=== PATIENT | female | born 1935 | race Caucasian/White ===

== ENCOUNTER → 2020-08-26 | Outpatient (CLI) | payer MEDICARE ==
[~2020-08-26] MED LIST: ASPIRIN EC325 MG PO; CALCIUM; CALCIUM CARBON600 MG PO; ENDOCET 5-3251 EACH PO; GUMMI BEAR MUL1 EACH PO; TYLENOL EXTRA500 MG PO; VITAMIN D 40400 UNIT PO
[2020-08-26 11:55] LABS: RED BLOOD COUNT 4.9 M/UL (4.00-5.10); WHITE BLOOD COUNT 6.8 K/UL (4.5-11.0)
[2020-08-26 12:15] LABS: BUN/CREATININE RATIO 27 (0-10)
== END ==
LOC: OPSV2 10:25 → EDSTATUS 10:30 → OPSV2 10:30
PROVIDERS: Orthopaedic Surgery
DX: Z01.818 Encounter for other preprocedural examination (principal); M16.12 Unilateral primary osteoarthritis, left hip; I44.0 Atrioventricular block, first degree; R94.31 Abnormal electrocardiogram [ECG] [EKG]
CPT/HCPCS: 36415; 80048; 85027; 87081; 93005

== ENCOUNTER → 2020-09-07 | Outpatient (CLI) | payer MEDICARE ==
[2020-09-07 17:50] LABS: BUN/CREATININE RATIO 26 (0-10)
== END ==
LOC: LAB 13:37
PROVIDERS: Orthopaedic Surgery
DX: Z01.812 Encounter for preprocedural laboratory examination (principal)
CPT/HCPCS: 36415; 80048; 86850; 86900; 86901

== ENCOUNTER 2020-09-08 06:59 | Inpatient (IN) | payer MEDICARE ==
[~2020-09-08] VITALS: Ht 157.5 cm; Wt 79.4 kg
[~2020-09-08 06:59] MED LIST changes: -ASPIRIN EC325 MG PO; -CALCIUM CARBON600 MG PO; -ENDOCET 5-3251 EACH PO; -GUMMI BEAR MUL1 EACH PO; -TYLENOL EXTRA500 MG PO; -VITAMIN D 40400 UNIT PO
[2020-09-08] MEDS ORDERED: ENDOCET 5-3251 EACH PO (12:09)
[2020-09-08] MEDS ORDERED: ASPIRIN EC325 MG PO (12:09)
[2020-09-09 03:06] LABS: HEMOGLOBIN 12.3 gm/dl (12.3-15.3); RED BLOOD COUNT 4.35 M/UL (4.00-5.10); WHITE BLOOD COUNT 10.5 K/UL (4.5-11.0)
[2020-09-09 03:46] LABS: BUN/CREATININE RATIO 18 (0-10)
[2020-09-09] MEDS ORDERED: GUMMI BEAR MUL1 EACH PO (09:01)
[2020-09-09] MEDS ORDERED: CALCIUM CARBON600 MG PO (11:16)
[2020-09-09] MEDS ORDERED: TYLENOL EXTRA500 MG PO (11:50)
[2020-09-09] MEDS ORDERED: VITAMIN D 40400 UNIT PO (11:50)
[2020-09-10 03:21] LABS: HEMOGLOBIN 10.6 gm/dl (12.3-15.3); WHITE BLOOD COUNT 10.9 K/UL (4.5-11.0)
[2020-09-10 03:22] LABS: RED BLOOD COUNT 3.78 M/UL (4.00-5.10)
[2020-09-10 03:45] LABS: BUN/CREATININE RATIO 19 (0-10)
[2020-09-11 03:50] LABS: HEMOGLOBIN 10.2 gm/dl (12.3-15.3); RED BLOOD COUNT 3.62 M/UL (4.00-5.10); WHITE BLOOD COUNT 8.9 K/UL (4.5-11.0)
[2020-09-11 04:07] LABS: BUN/CREATININE RATIO 15 (0-10)
== END 2020-09-11 15:52 | disposition home health service (06) | DRG 470 ==
LOC: ZOBSOF 06:59 → EDBD 15:00 → M/S 17:07
PROVIDERS: Internal Medicine; ADMIT Orthopaedic Surgery
PROC: 0SRB01A Replacement of Left Hip Joint with Metal Synthetic Substitute, Uncemented, Open Approach (ICD-10-PCS; principal; 2020-09-08 11:30)
DX: M16.12 Unilateral primary osteoarthritis, left hip (principal); D62 Acute posthemorrhagic anemia; E87.6 Hypokalemia; Z96.698 Presence of other orthopedic joint implants; Z20.822 Contact with and (suspected) exposure to COVID-19; Z79.82 Long term (current) use of aspirin; Z90.710 Acquired absence of both cervix and uterus; Z98.890 Other specified postprocedural states
CPT/HCPCS: 36415; 73501; 73502; 76000; 80048; 85025; 85027; 86850; 86900; 86901; 97110-GP-CQ; 97116-GP-CQ; 97161; 97166; 97535; C1713; C1776; J0171; J0592; J0690; J1100; J1885; J2001; J2370; J2405; J2704; J2795; J3370; J7030; J7050; J7120

== ENCOUNTER → 2021-02-01 | Outpatient (CLI) | payer MEDICARE ==
[~2021-02-01] MED LIST changes: +ALEVE; +ASPIRIN EC325 MG PO; +ASPIRIN EC81 MG PO; +CALCIUM CARBON600 MG PO; +CITRACAL; +ENDOCET 5-3251 EACH PO; +GUMMI BEAR MUL1 EACH PO; +OXYBUTYNIN CHLOR5 M1 PO; +TYLENOL EXTRA500 MG PO; +VITAMIN D; +VITAMIN D 40400 UNIT PO; +ZOFRAN4 MG PO
[2021-02-01 09:56] LABS: HEMOGLOBIN 14.1 gm/dl (12.3-15.3); RED BLOOD COUNT 5.21 M/UL (4.00-5.10); WHITE BLOOD COUNT 7.3 K/UL (4.5-11.0)
[2021-02-01 10:11] LABS: BUN/CREATININE RATIO 30 (0-10)
== END ==
LOC: OPSV2 07:37 → EDSTATUS 08:00
PROVIDERS: Orthopaedic Surgery
DX: Z01.818 Encounter for other preprocedural examination (principal); M17.12 Unilateral primary osteoarthritis, left knee; R94.31 Abnormal electrocardiogram [ECG] [EKG]
CPT/HCPCS: 71046; 80048; 85025; 93005

== ENCOUNTER → 2021-02-10 | Outpatient (CLI) | payer MEDICARE ==
[2021-02-10 10:29] LABS: BUN/CREATININE RATIO 25 (0-10)
== END ==
LOC: LAB 09:03
PROVIDERS: Orthopaedic Surgery
DX: Z01.812 Encounter for preprocedural laboratory examination (principal)
CPT/HCPCS: 36415; 80048; 86850; 86900; 86901

== ENCOUNTER → 2021-09-28 | Outpatient (CLI) | payer MEDICARE ==
[~2021-09-28] MED LIST changes: +CALCIUM PO; +TYLENOL 8 HOUR650 MG PO
[2021-09-28 14:21] LABS: HEMOGLOBIN 13.5 gm/dl (12.3-15.3); RED BLOOD COUNT 4.86 M/UL (4.00-5.10); WHITE BLOOD COUNT 7.7 K/UL (4.5-11.0)
[2021-09-28 14:59] LABS: BUN/CREATININE RATIO 34 (0-10)
== END ==
LOC: OPSV2 12:26 → EDSTATUS 12:30 → OPSV2 12:30
PROVIDERS: Orthopaedic Surgery
DX: Z01.818 Encounter for other preprocedural examination (principal); M17.11 Unilateral primary osteoarthritis, right knee; J84.9 Interstitial pulmonary disease, unspecified
CPT/HCPCS: 36415; 71046; 80048; 85025; 93005

== ENCOUNTER 2021-10-12 07:00 | Day surgery (SDC) | payer MEDICARE ==
[~2021-10-12] VITALS: Ht 157.5 cm; Wt 78.0 kg
[2021-10-12] MEDS ORDERED: [UNRECOGNIZED DRUG - OTHER] PO (07:24)
[2021-10-12] MEDS ORDERED: CALCIUM CARBON600 M1 PO (07:24)
[2021-10-12] MEDS ORDERED: VITAMIN D325 MC6 PO (07:25)
[2021-10-12] MEDS ORDERED: ELDERBERRY PO (07:25)
[2021-10-12 07:48] LABS: BUN/CREATININE RATIO 31 (0-10)
[2021-10-12] MEDS ORDERED: ENDOCET 5-3251 EACH PO (11:05)
[2021-10-12] MEDS ORDERED: CYCLOBENZAPRINE5 MG PO (11:05)
[2021-10-12] MEDS ORDERED: ZOFRAN 4 MG TAB4 MG PO (11:05)
[2021-10-12] MEDS ORDERED: ELIQUIS2.5 MG PO (11:05)
[2021-10-12] MEDS ORDERED: [UNRECOGNIZED DRUG - OTHER] PO (17:48)
[2021-10-13 02:35] LABS: HEMOGLOBIN 11.6 gm/dl (12.3-15.3); RED BLOOD COUNT 4.08 M/UL (4.00-5.10); WHITE BLOOD COUNT 12.7 K/UL (4.5-11.0)
[2021-10-13 03:23] LABS: BUN/CREATININE RATIO 22 (0-10)
[2021-10-14 03:22] LABS: BUN/CREATININE RATIO 20 (0-10)
[2021-10-14 03:28] LABS: HEMOGLOBIN 10.1 gm/dl (12.3-15.3); WHITE BLOOD COUNT 9.7 K/UL (4.5-11.0)
[2021-10-14 03:35] LABS: RED BLOOD COUNT 3.58 M/UL (4.00-5.10)
== END 2021-10-14 12:50 | disposition home health service (06) ==
LOC: OR 07:00 → EDSTATUS 07:30 → OR 07:30 → M/S 14:29 → OR 10-14 12:50
PROVIDERS: Orthopaedic Surgery
PROC: 3E0T3BZ Introduction of Anesthetic Agent into Peripheral Nerves and Plexi, Percutaneous Approach (ICD-10-PCS; 2021-10-12)
PROC: 0SRC0J9 Replacement of Right Knee Joint with Synthetic Substitute, Cemented, Open Approach (ICD-10-PCS; principal; 2021-10-12 10:15)
DX: M17.11 Unilateral primary osteoarthritis, right knee (principal); M81.0 Age-related osteoporosis without current pathological fracture; R32 Unspecified urinary incontinence; Z96.642 Presence of left artificial hip joint; Z96.652 Presence of left artificial knee joint
CPT/HCPCS: 36415; 73560; 80048; 85027; 86850; 86900; 86901; 97116-GP-CQ; 97161; 97165; 97530; 97530-GP-CQ; C1713; C1776; J0690; J1100; J1885; J2270; J2405; J2704; J2710; J2795; J3010; J3370